=== PATIENT | male | born 1940 | race Caucasian/White ===

== ENCOUNTER 2021-11-28 14:59 | Inpatient (IN) | payer MEDICARE, OTHER ==
[~2021-11-28] VITALS: Ht 162.6 cm; Wt 44.0 kg
--- NOTE | 2021-11-28 15:15 | NUR ---
BIB FAMILY C/O SHARP CHEST PAIN X 2 DAYS, COUGH, CONGESTION, SOB. PS RATED 6/10. AAOX4, BREATHING EVEN AND UNLABORED, POX 95% ON NASAL CANNULA 2L. ON MONITOR. WILL CONTINUE TO MONITOR.
--- NOTE | 2021-11-28 15:25 | NUR ---
IV LINE ESTABLISHED ON LFA #18, BLOOD DRAWN AND SENT TO LAB
[2021-11-28] MEDS ORDERED: methylPREDNISolone SOD SUCC 125 MG/2ML VIAL IV ONE (15:30)
[2021-11-28] MEDS ORDERED: IPRATROPIUM NEB FS 0.5 MG/2.5 ML AMPUL.NEB NEB ONE (15:30)
[2021-11-28] MEDS ORDERED: ALBUTEROL FS 2.5 MG/3 ML VIAL.NEB CONTNEB ONE (15:30)
[2021-11-28] MEDS ORDERED: ALBUTEROL FS 2.5 MG/3 ML VIAL.NEB ONE (15:47)
[2021-11-28] MEDS ORDERED: IPRATROPIUM NEB FS 0.5 MG/2.5 ML AMPUL.NEB ONE (15:47)
--- NOTE | 2021-11-28 16:06 | NUR ---
COVID AND INFLUENZA SWABS OBTAINED AND SENT TO LAB
[2021-11-28 16:28] LABS: BASOPHILS % (AUTO) 0.2 % (0.0-2.0); EOSINOPHILS % (AUTO) 0.1 % (0.0-6.0); HEMATOCRIT 39 % (39-51); HEMOGLOBIN 12.7 g/dL (13.5-17.5); LYMPHOCYTES # (AUTO) 0.6 K/uL (0.8-4.8); MEAN CORPUSCULAR HGB CONC 33 g/dl (31.0-36.0); MEAN CORPUSCULAR VOLUME 96 fL (80-96); MONOCYTES # (AUTO) 1.8 K/uL (0.1-1.30); MONOCYTES % (AUTO) 22.2 % (2.0-12.0); NEUTROPHILS # (AUTO) 5.6 K/uL (1.8-8.9); NEUTROPHILS % (AUTO) 69.5 % (43.0-81.0); PLATELET COUNT (AUTO) 182 K/uL (150-450); RED BLOOD CELL COUNT(AUTO) 4.04 MIL/uL (4.5-6.0)
[2021-11-28 16:38] LABS: CALCIUM, SERUM 8.7 mg/dL (8.5-10.1); CARBON DIOXIDE 27 mmol/L (21-32); CHLORIDE 95 mmol/L (98-107); CREATININE 1.7 mg/dL (0.6-1.3); GLUCOSE 109 mg/dL (74-106); POTASSIUM 4.3 mmol/L (3.5-5.1); SODIUM SERUM 131 mmol/L (136-145); UREA NITROGEN, BLOOD 28 mg/dL (7-18)
[2021-11-28 16:52] LABS: ALBUMIN 3.5 g/dL (3.4-5.0); ALKALINE PHOSPHATASE 87 U/L (46-116); ASPARTATE AMINOTRANSFERASE 42 U/L (15-37); BILIRUBIN,DIRECT 0.3 mg/dL (0.0-0.2); BILIRUBIN,TOTAL 0.8 mg/dL (0.2-1.0)
[2021-11-28] MEDS ORDERED: methylPREDNISolone SOD SUCC 125 MG/2ML VIAL ONE (17:03)
[2021-11-28] MEDS ORDERED: ASCO-340 PO (17:14)
[2021-11-28] MEDS ORDERED: FERR-68 PO (17:14)
[2021-11-28] MEDS ORDERED: FOLI0.4T6 PO (17:14)
[2021-11-28] MEDS ORDERED: SACU1TAB PO (17:14)
[2021-11-28] MEDS ORDERED: TIMO5DRO18 RIGHTEYE (17:14)
[2021-11-28] MEDS ORDERED: LORA-258 PO (17:14)
[2021-11-28] MEDS ORDERED: APIX5TAB PO (17:14)
[2021-11-28] MEDS ORDERED: PANT40TA2 PO (17:14)
[2021-11-28] MEDS ORDERED: CLOP75TA15 PO (17:14)
[2021-11-28] MEDS ORDERED: MAGN400T26 PO (17:14)
[2021-11-28] MEDS ORDERED: FURO20TA4 PO (17:14)
[2021-11-28] MEDS ORDERED: POTA20TA83 PO (17:14)
[2021-11-28] MEDS ORDERED: CARV12.52 PO (17:14)
[2021-11-28] MEDS ORDERED: DOCU-141 PO (17:14)
[2021-11-28] MEDS ORDERED: GABA-532 PO (17:14)
[2021-11-28] MEDS ORDERED: IPRA3AMP23 NEB (17:14)
[2021-11-28] MEDS ORDERED: ROSU20TA32 PO (17:14)
[2021-11-28 17:22] LABS: ALANINE AMINOTRANSFERASE 48 U/L (12-78); TOTAL PROTEIN, SERUM 7.8 g/dL (6.4-8.2)
--- NOTE | 2021-11-28 17:45 | NUR ---
CALLED NURSING SUP REGARDING PT BED
[2021-11-28] MEDS ORDERED: ACETAMINOPHEN 325 MG TABLET PO PRN (18:00)
[2021-11-28] MEDS ORDERED: MAGNESIUM HYDROXIDE 30 ML UDC PO PRN (18:00)
[2021-11-28] MEDS ORDERED: ZOLPIDEM TARTRATE 5 MG TABLET PO PRN (18:00)
[2021-11-28] MEDS ORDERED: ONDANSETRON HCL/PF 4 MG/2 ML VIAL IVP PRN (18:00)
[2021-11-28] MEDS ORDERED: Z GUARD REMEDY 4 OZ OINT TP PRN (18:00)
[2021-11-28] MEDS ORDERED: MAG HYDROX/AL HYDROX/SIMETH 30 ML UDC PO PRN (18:00)
[2021-11-28] MEDS ORDERED: Medication Not On Formulary EA (Ipratropium/Albuterol Sulfate (Duoneb 2.5-0.5 Mg/3 Ml So NEB PRN (18:00)
[2021-11-28] MEDS ORDERED: IPRATROPIUM NEB FS 0.5 MG/2.5 ML AMPUL.NEB NEB PRN (19:00)
[2021-11-28] MEDS ORDERED: ALBUTEROL FS 2.5 MG/3 ML VIAL.NEB NEB PRN (19:00)
--- NOTE | 2021-11-28 20:23 | NUR ---
REPORT GIVEN TO LUDIVINA FraserW RN FOR EMANUEL
--- NOTE | 2021-11-28 20:31 | NUR ---
PT TRANSFERRED TO 3W VIA ACLS PRTOCOL. ALL BELONGINGS WITH PT. RICK (FAMILY) AWARE THAT PT TRANSFFERED & GAVE EDUCATION.
[2021-11-28 20:35] VITALS: BP 145/50
--- NOTE | 2021-11-28 20:35 | NUR ---
RN NOTES; PT RECEIVED FROM ER WITH JESUSITA IN RM 313-1.AOX4 ABLE TO VERBALIZE NEEDS.ON 2L OXYGEN VIA NC INPLACE SATTING 96%.NO SIGN SOB/DISTRESS NOTED.NO COMPLAINED OF PAIN/DISCOMFORT AT THIS TIME.IV ACCESS ON LFA 18G PATENT AND INTACT SL.PT WAS REORIENT THE RM AND VERBALIZE UNDERSTANDING.SAFETY MEASURED INPLACE.CALL LIGHT WITHIN REACH.BED LOCKED AND LOW POSITION.WILL CONTINUE TO MONITOR.
[2021-11-28] MEDS: LEVOFLOXACIN 500 MG /D5W 100ML 500 MG in PREMIX 1 EA IV SCH (21:14)
[2021-11-28] MEDS: LORAZEPAM 0.5 MG TABLET PO SCH (21:14)
[2021-11-28] MEDS: methylPREDNISolone SOD SUCC 40 MG/ML VIAL IV SCH (21:14)
[2021-11-29 00:53] VITALS: BP 94/53
[2021-11-29 04:09] VITALS: BP 106/56
[2021-11-29] MEDS: methylPREDNISolone SOD SUCC 40 MG/ML VIAL IV SCH ×3 (05:08→20:59)
--- NOTE | 2021-11-29 06:12 | NUR ---
RN CLOSING NOTES; PT IN BED AAOX4, ABLE TO VERBALIZE NEEDS.ON 2L OXYGEN VIA NC INPLACE SATTING 97%.NO SIGN SOB/DISTRESS NOTED.BREATHING EVEN UNLABORED.NO COMPLAINED OF PAIN/DISCOMFORT.DUE MEDS GIVEN ORDER.ALL NEEDS ATTENDED,IV ACCESS ON LFA 18G PATENT AND INTACT SL.SAFETY MEASURED INPLACE.CALL LIGHT WITHIN REACH.BED LOCKED AND LOW POSITION.WILL ENDORSED TO NEXT SHIFT.
[2021-11-29 06:13] LABS: CHOLESTEROL 97 mg/dL (<200); HDL CHOLESTEROL 46 mg/dL (40-60); LDL 45 mg/dL (0-99); TRIGLYCERIDES 31 mg/dL (30-150)
[2021-11-29 06:17] LABS: CALCIUM, SERUM 8.6 mg/dL (8.5-10.1); CARBON DIOXIDE 26 mmol/L (21-32); CHLORIDE 100 mmol/L (98-107); CREATININE 1.5 mg/dL (0.6-1.3); GLUCOSE 179 mg/dL (74-106); MAGNESIUM 2.5 mg/dL (1.8-2.4); PHOSPHORUS 2.9 mg/dL (2.5-4.9); POTASSIUM 4.5 mmol/L (3.5-5.1); SODIUM SERUM 135 mmol/L (136-145); UREA NITROGEN, BLOOD 31 mg/dL (7-18)
[2021-11-29 06:28] LABS: BASOPHILS % (AUTO) 0.1 % (0.0-2.0); HEMATOCRIT 35 % (39-51); HEMOGLOBIN 11.7 g/dL (13.5-17.5); LYMPHOCYTES # (AUTO) 0.4 K/uL (0.8-4.8); LYMPHOCYTES % (AUTO) 9.3 % (20.0-44.0); MEAN CORPUSCULAR HGB CONC 34 g/dl (31.0-36.0); MEAN CORPUSCULAR VOLUME 94 fL (80-96); MONOCYTES # (AUTO) 0.4 K/uL (0.1-1.30); MONOCYTES % (AUTO) 7.7 % (2.0-12.0); NEUTROPHILS % (AUTO) 82.9 % (43.0-81.0); PLATELET COUNT (AUTO) 181 K/uL (150-450); RED BLOOD CELL COUNT(AUTO) 3.68 MIL/uL (4.5-6.0); WHITE BLOOD COUNT (AUTO) 4.8 K/uL (4.3-11.0)
--- NOTE | 2021-11-29 07:26 | NUR ---
CIVIL PREPAREDNESS COORDINATOR OPENING NOTE RECEIVED PT ASLEEP IN BED, EASILY AROUSED. A/O X4, ABLE TO MAKE NEEDS KNOWN. ON O2 AT 2L/MIN VIA NASAL CANNULA, TOLERATING WELL. NO SOB NOTED. NOT IN ANY SIGN OF RESPIRATORY DISTRESS. ON CARDIAC TELE MONITOR WITH CURRENT READING OF SINUS RHYTHM WITH BBB, HR 71. NO C/O CARDIAC DISTRESS VOICED AT THIS TIME. IV ACCESS IN LFA G#18 SALINE LOCK, INTACT, AND PATENT. SAFETY MEASURES IN PLACE: BED IN LOWEST AND LOCKED POSITION, SIDE RAILS UPX2, AND CALL LIGHT WITHIN REACH. WILL CONTINUE TO MONITOR PT.
[2021-11-29 08:00] VITALS: BP 109/66
[2021-11-29] MEDS: PANTOPRAZOLE 40 MG TABLET.DR PO SCH (08:26)
[2021-11-29] MEDS: CLOPIDOGREL BISULFATE 75 MG TABLET PO SCH (08:27)
[2021-11-29] MEDS: FOLIC ACID 1 MG TABLET PO SCH (08:27)
[2021-11-29] MEDS: ATORVASTATIN 40 MG TABLET PO SCH (08:27)
[2021-11-29] MEDS: LORAZEPAM 0.5 MG TABLET PO SCH ×2 (08:28→20:59)
[2021-11-29] MEDS: ASCORBIC ACID 500 MG TABLET PO SCH (08:28)
[2021-11-29] MEDS: GABAPENTIN 100 MG CAPSULE PO SCH ×3 (08:28→16:12)
[2021-11-29] MEDS: FERROUS SULFATE (325 MG) 325 MG/TAB TABLET PO SCH (08:28)
[2021-11-29] MEDS: CARVEDILOL 12.5 MG TABLET PO SCH ×2 (08:29→16:13)
[2021-11-29] MEDS: APIXABAN 2.5 MG TABLET PO SCH ×2 (08:31→16:12)
[2021-11-29] MEDS: DOCUSATE SODIUM 100 MG CAPSULE PO SCH (08:37)
[2021-11-29] MEDS: IV D5/ 0.9% NACL 1,000 ML IV PRN (10:11)
[2021-11-29] MEDS: TIMOLOL 0.5% SOLN OPHTH 5 ML BOTTLE RIGHTEYE SCH (10:36)
[2021-11-29] MEDS: GUAIFENESIN LA 600 MG TABLET.SA PO SCH ×2 (10:36→20:59)
--- NOTE | 2021-11-29 12:21 | NUR ---
TX NOT GIVEN ON TIME DUE TO BEEN BUSY AR THE ER. Addendum: 11/29/21 at 1222 by EVELIN QUINTANILLA RT Amended: Links added.
[2021-11-29] MEDS: ALBUTEROL FS 2.5 MG/3 ML VIAL.NEB NEB SCH ×3 (12:36→20:22)
[2021-11-29] MEDS: IPRATROPIUM NEB FS 0.5 MG/2.5 ML AMPUL.NEB NEB SCH ×3 (12:37→20:22)
--- NOTE | 2021-11-29 13:45 | NUR ---
10:00 am TX NOT GIVEN DUE TO BUSY IN ER AND THE 13:30 TX WERE GIVEN EARLIER. PATIENT IS STABLE NO DISTRESS. Addendum: 11/29/21 at 1346 by EVELIN QUINTANILLA RT Amended: Links added.
[2021-11-29 16:05] VITALS: BP 116/58
[2021-11-29] MEDS: ENTRESTO PO SCH (16:12)
--- NOTE | 2021-11-29 19:15 | NUR ---
TANK MAKER WOOD CLOSING NOTE PT ASLEEP IN BED, EASILY AROUSED. A/O X4, ABLE TO MAKE NEEDS KNOWN. ON O2 AT 2L/MIN VIA NASAL CANNULA, TOLERATING WELL. NO SOB NOTED. NOT IN ANY SIGN OF RESPIRATORY DISTRESS. ON CARDIAC TELE MONITOR WITH CURRENT READING OF SINUS RHYTHM, HR 75. NO C/O CARDIAC DISTRESS VOICED AT THIS TIME. IV ACCESS IN LFA G#18 INTACT AND PATENT WITH D5 NS INFUSING AT 75ML/HL. ALL NEEDS ATTENDED. KEPT CLEAN AND COMFORTABLE. SAFETY MEASURES IN PLACE: BED IN LOWEST AND LOCKED POSITION, SIDE RAILS UPX2, AND CALL LIGHT WITHIN REACH. ENDORSED TO PATENTS EXAMINER NURSE FOR EMANUEL.
--- NOTE | 2021-11-29 19:30 | NUR ---
ORIGINATION SPECIALIST OPENING NOTE RECEIVED PT ASLEEP IN BED, EASILY AROUSED. A/O X4, ABLE TO MAKE NEEDS KNOWN. ON O2 AT 2L/MIN VIA NASAL CANNULA, TOLERATING WELL. NO SOB OR S/S OF RESPIRATORY DISTRESS. ON EXTERNAL INTERLOCKER WITH CURRENT READING OF SINUS RHYTHM, HR 75. IV ACCESS LFA G#18 INTACT AND PATENT RUNNING D5 NS @ 75ML/HL. SAFETY PRECAUTIONS IN PLACE. BED IN LOWEST LOCKED POSITION, HOB ELEVATED, SIDE RAILS UP X2, AND CALL LIGHT AND TABLE WITHIN REACH. ALL NEEDS MET AT THIS TIME.
[2021-11-29 20:00] VITALS: BP 93/49
[2021-11-29] MEDS: LEVOFLOXACIN 500 MG /D5W 100ML 500 MG in PREMIX 1 EA IV SCH (20:59)
[2021-11-29 23:48] VITALS: BP 102/59
[2021-11-30] MEDS: IPRATROPIUM NEB FS 0.5 MG/2.5 ML AMPUL.NEB NEB SCH ×5 (01:30→20:17)
[2021-11-30] MEDS: ALBUTEROL FS 2.5 MG/3 ML VIAL.NEB NEB SCH ×5 (01:30→20:17)
[2021-11-30 04:00] VITALS: BP 99/54
[2021-11-30] MEDS: methylPREDNISolone SOD SUCC 40 MG/ML VIAL IV SCH ×3 (05:24→21:33)
--- NOTE | 2021-11-30 06:30 | NUR ---
QUALITATIVE EXECUTIVE RESEARCHER CLOSING NOTE PT AWAKE IN BED. A/O X4, ABLE TO MAKE NEEDS KNOWN. ON O2 AT 2L/MIN VIA NASAL CANNULA, TOLERATING WELL. NO SOB OR S/S OF RESPIRATORY DISTRESS. BREATHING EVEN AND UNLABORED. ON EXTERNAL RELIGIOUS EDUCATION TEACHER WITH CURRENT READING OF SINUS RHYTHM, HR 72. IV ACCESS LFA G#18 INTACT AND PATENT RUNNING D5 NS @ 75ML/HL. ALL DUE MEDS GIVEN ORDERED. SAFETY PRECAUTIONS IN PLACE AT ALL TIMES. BED IN LOWEST LOCKED POSITION, HOB ELEVATED, SIDE RAILS UP X2, AND CALL LIGHT AND TABLE WITHIN REACH. ALL NEEDS MET AT THIS TIME AND WILL ENDORSE TO ONCOMING NURSE FOR EMANUEL.
[2021-11-30 07:07] LABS: CALCIUM, SERUM 8.5 mg/dL (8.5-10.1); CREATININE 1.3 mg/dL (0.6-1.3); POTASSIUM 3.7 mmol/L (3.5-5.1)
--- NOTE | 2021-11-30 07:29 | NUR ---
COLLECTION SPECIALIST OPENING NOTE RECEIVED PT ASLEEP IN BED, EASILY AROUSED. A/O X4, ABLE TO MAKE NEEDS KNOWN. ON O2 AT 2L/MIN VIA NASAL CANNULA, TOLERATING WELL. NO SOB NOTED. NOT IN ANY SIGN OF RESPIRATORY DISTRESS. ON CARDIAC TELE MONITOR WITH CURRENT READING OF SINUS RHYTHM WITH BBB, HR 65. NO C/O CARDIAC DISTRESS VOICED AT THIS TIME. IV ACCESS IN LFA G#18 INTACT AND PATENT WITH D5 NS INFUSING AT 75ML/HL. SAFETY MEASURES IN PLACE: BED IN LOWEST AND LOCKED POSITION, SIDE RAILS UPX2, AND CALL LIGHT WITHIN REACH. WILL CONTINUE TO MONITOR PT.
[2021-11-30] MEDS: PANTOPRAZOLE 40 MG TABLET.DR PO SCH (07:53)
[2021-11-30 08:00] VITALS: BP 117/60
[2021-11-30] MEDS: ENTRESTO PO SCH ×2 (08:48→17:28)
[2021-11-30] MEDS: GUAIFENESIN LA 600 MG TABLET.SA PO SCH ×2 (08:48→21:33)
[2021-11-30] MEDS: FOLIC ACID 1 MG TABLET PO SCH (08:48)
[2021-11-30] MEDS: CLOPIDOGREL BISULFATE 75 MG TABLET PO SCH (08:48)
[2021-11-30] MEDS: TIMOLOL 0.5% SOLN OPHTH 5 ML BOTTLE RIGHTEYE SCH (08:48)
[2021-11-30] MEDS: DOCUSATE SODIUM 100 MG CAPSULE PO SCH (08:48)
[2021-11-30] MEDS: GABAPENTIN 100 MG CAPSULE PO SCH ×3 (08:49→17:28)
[2021-11-30] MEDS: ASCORBIC ACID 500 MG TABLET PO SCH (08:49)
[2021-11-30] MEDS: LORAZEPAM 0.5 MG TABLET PO SCH ×2 (08:49→21:32)
[2021-11-30] MEDS: FERROUS SULFATE (325 MG) 325 MG/TAB TABLET PO SCH (08:49)
[2021-11-30] MEDS: CARVEDILOL 12.5 MG TABLET PO SCH ×2 (08:50→17:00)
[2021-11-30] MEDS: ATORVASTATIN 40 MG TABLET PO SCH (08:51)
[2021-11-30] MEDS: APIXABAN 2.5 MG TABLET PO SCH ×2 (08:52→17:26)
[2021-11-30] MEDS: IV D5/ 0.9% NACL 1,000 ML IV PRN (10:24)
[2021-11-30 12:00] VITALS: BP 114/51
--- NOTE | 2021-11-30 19:51 | NUR ---
RN OPENING NOTES; RECEICED PT IN BED AAOX4, ABLE TO VERBALIZE NEEDS.ON 2L OXYGEN VIA NC INPLACE SATTING 98%.NO SIGN SOB/DISTRESS NOTED.BREATHING EVEN UNLABORED.NO COMPLAINED OF PAIN/DISCOMFORT.IV ACCESS ON LFA 18G PATENT AND INTACT SL.SAFETY MEASURED INPLACE.CALL LIGHT WITHIN REACH.BED LOCKED AND LOW POSITION.WILL CONTINUE TO MONITOR.
[2021-11-30 20:00] VITALS: BP 110/61
[2021-11-30] MEDS: LEVOFLOXACIN 250 MG /D5W 50 ML 250 MG in PREMIX 1 EA IV SCH (21:32)
[2021-11-30 23:52] VITALS: BP 112/64
[2021-12-01] MEDS: IPRATROPIUM NEB FS 0.5 MG/2.5 ML AMPUL.NEB NEB SCH ×4 (01:30→19:50)
[2021-12-01] MEDS: ALBUTEROL FS 2.5 MG/3 ML VIAL.NEB NEB SCH ×4 (01:30→19:50)
[2021-12-01] MEDS: IV D5/ 0.9% NACL 1,000 ML IV PRN ×2 (02:56→22:15)
[2021-12-01] MEDS: methylPREDNISolone SOD SUCC 40 MG/ML VIAL IV SCH ×2 (04:37→21:30)
[2021-12-01 05:38] VITALS: BP 115/84
--- NOTE | 2021-12-01 06:22 | NUR ---
CODING MANAGER CLOSING NOTE; PT AWAKE IN BED. A/O X4, ABLE TO MAKE NEEDS KNOWN. ON O2 AT 2L/MIN VIA NASAL CANNULA, TOLERATING WELL. NO SOB/DISTRESS NOTED. BREATHING EVEN AND UNLABORED. ON EXTERNAL RECENTERER WITH CURRENT READING OF SINUS RHYTHM, HR 70. IV ACCESS LFA G#18 INTACT AND PATENT RUNNING D5 NS @ 75ML/HL.DUE MEDS GIVEN ORDERED.ALL NEEDS ATTENDED SAFETY PRECAUTIONS IN PLACE AT ALL TIMES. BED IN LOWEST LOCKED POSITION, HOB ELEVATED, SIDE RAILS UP X2, AND CALL LIGHT AND TABLE WITHIN REACH. WILL ENDORSE TO NEXT SHIFT.
[2021-12-01 06:25] LABS: BASOPHILS % (AUTO) 0.1 % (0.0-2.0); HEMATOCRIT 34 % (39-51); HEMOGLOBIN 11.3 g/dL (13.5-17.5); LYMPHOCYTES # (AUTO) 0.7 K/uL (0.8-4.8); LYMPHOCYTES % (AUTO) 5.9 % (20.0-44.0); MEAN CORPUSCULAR HGB CONC 33 g/dl (31.0-36.0); MEAN CORPUSCULAR VOLUME 94 fL (80-96); MONOCYTES # (AUTO) 0.6 K/uL (0.1-1.30); MONOCYTES % (AUTO) 5.4 % (2.0-12.0); NEUTROPHILS # (AUTO) 10.1 K/uL (1.8-8.9); NEUTROPHILS % (AUTO) 88.6 % (43.0-81.0); PLATELET COUNT (AUTO) 229 K/uL (150-450); RED BLOOD CELL COUNT(AUTO) 3.62 MIL/uL (4.5-6.0); WHITE BLOOD COUNT (AUTO) 11.4 K/uL (4.3-11.0)
[2021-12-01 06:42] LABS: CALCIUM, SERUM 8.6 mg/dL (8.5-10.1); CARBON DIOXIDE 23 mmol/L (21-32); CHLORIDE 104 mmol/L (98-107); CREATININE 1.2 mg/dL (0.6-1.3); GLUCOSE 170 mg/dL (74-106); POTASSIUM 4.2 mmol/L (3.5-5.1); SODIUM SERUM 138 mmol/L (136-145); UREA NITROGEN, BLOOD 34 mg/dL (7-18)
--- NOTE | 2021-12-01 07:20 | NUR ---
ms rn received on bed, awake,alert,oriented x4,not in any form of distress, respirations even and unlabored,no sob noted, lungs are clear,abdomen soft,positive bowel sounds,denies pain at this time,all needs attended.
[2021-12-01] MEDS: PANTOPRAZOLE 40 MG TABLET.DR PO SCH (08:25)
--- NOTE | 2021-12-01 09:55 | NUR ---
ms galloway breakfast served,due meds given, tolerated well.
[2021-12-01] MEDS: GABAPENTIN 100 MG CAPSULE PO SCH ×3 (09:57→17:41)
[2021-12-01] MEDS: ASCORBIC ACID 500 MG TABLET PO SCH (09:58)
[2021-12-01] MEDS: FERROUS SULFATE (325 MG) 325 MG/TAB TABLET PO SCH (09:58)
[2021-12-01] MEDS: ATORVASTATIN 40 MG TABLET PO SCH (09:58)
[2021-12-01] MEDS: GUAIFENESIN LA 600 MG TABLET.SA PO SCH ×2 (09:58→21:30)
[2021-12-01] MEDS: LORAZEPAM 0.5 MG TABLET PO SCH ×2 (09:58→21:30)
[2021-12-01] MEDS: FOLIC ACID 1 MG TABLET PO SCH (09:58)
[2021-12-01] MEDS: CLOPIDOGREL BISULFATE 75 MG TABLET PO SCH (09:58)
[2021-12-01] MEDS: DOCUSATE SODIUM 100 MG CAPSULE PO SCH (09:58)
[2021-12-01] MEDS: CARVEDILOL 12.5 MG TABLET PO SCH ×2 (10:05→17:42)
[2021-12-01] MEDS: APIXABAN 2.5 MG TABLET PO SCH ×2 (10:06→17:43)
[2021-12-01] MEDS: ENTRESTO PO SCH ×2 (11:07→17:41)
[2021-12-01] MEDS: TIMOLOL 0.5% SOLN OPHTH 5 ML BOTTLE RIGHTEYE SCH (11:10)
--- NOTE | 2021-12-01 11:20 | NUR ---
ms nate was seen by shin seaman/ orders made and carried out.
--- NOTE | 2021-12-01 15:50 | NUR ---
ms rn on bed, no distress noted.
--- NOTE | 2021-12-01 19:48 | NUR ---
MS RN OPENING NOTES: RECEIVED PATIENT AWAKE IN BED, BED IN LOW POSITION CALL LIGHTS WITHIN REACH, NO COMPLAIN OF PAIN AND DISCOMFORT AT THIS TIME ON O2 INHALATION AT 3LPM SATURATING WELL, PATIENT WITH IV LINE AT LFA#20 WITH ONGOING D5NS@75ML/HR INFUSIG WELL, PATIENT KEPT PATIENT IS A./O/OX4 ABLE TO MAKE NEEDS KNOWN REMIND THE PATIENT TO USE THE CALL LIGHTS WHEN NEEDED ASSISTANCE, PATIENT KEPT CLEAN AND DRY ALL NEEDS MET ENDORSE TO INCOMING SHIFT. ,
[2021-12-01 20:00] VITALS: BP_SYST 115; BP_SYST 127; BP_DIAS 63; BP_DIAS 91
[2021-12-01] MEDS: LEVOFLOXACIN 250 MG /D5W 50 ML 250 MG in PREMIX 1 EA IV SCH (21:31)
[2021-12-02] MEDS: IPRATROPIUM NEB FS 0.5 MG/2.5 ML AMPUL.NEB NEB SCH ×4 (01:30→20:16)
[2021-12-02] MEDS: ALBUTEROL FS 2.5 MG/3 ML VIAL.NEB NEB SCH ×4 (01:30→20:16)
--- NOTE | 2021-12-02 06:28 | NUR ---
MS RN CLOSING NOTES: PATIENT SLEEP IN BED COMFORTABLY, AROUSABLE TO VERBAL STIMULI, BED IN LOW POSITION, CALL LIGHTS WITHIN REACH, NO COMPLAIN OF PAIN AND DISCOMFORT AT THIS TIME, ON O2 INHALATION AT 2LPM VIA NASAL CANNULA, NO SOB WAS OBSERVED, PATIENT KEPT CLEAN AND DRY ALL NEEDS MET ENDORSE TO INCOMING SHIFT
--- NOTE | 2021-12-02 07:15 | NUR ---
RN NOTES RECEIVED PATIENT IN BED ASLEEP, EASILY AROUSED. PATIENT IS A/O X4, VERBALLY RESPONSIVE. NO SIGNS OF ACUTE DISTRESS NOTED. ON O2 @ 2LPM VIA N/C, NO SOB NOTED, BREATHING EVEN AND UNLABORED. NOTED WITH IV ACCESS ON LEFT FORE ARM #18G, INTACT AND PATENT, WITH D5NS @ 75 ML/HR RUNNING. DENIES ANY PAIN AT THIS TIE. SAFETY MEASURE IN PLACE. BED IN LOWEST AND LOCKED POSITION, SIDE RAILS UP X2, CALL LIGHT PLACED WITHIN EASY REACH. WILL CONTINUE TO MONITOR PATIENT.
[2021-12-02 08:00] VITALS: BP 128/71
[2021-12-02] MEDS: PANTOPRAZOLE 40 MG TABLET.DR PO SCH (08:22)
[2021-12-02] MEDS: DOCUSATE SODIUM 100 MG CAPSULE PO SCH (08:22)
[2021-12-02] MEDS: CLOPIDOGREL BISULFATE 75 MG TABLET PO SCH (08:22)
[2021-12-02] MEDS: FERROUS SULFATE (325 MG) 325 MG/TAB TABLET PO SCH (08:22)
[2021-12-02] MEDS: GUAIFENESIN LA 600 MG TABLET.SA PO SCH ×2 (08:22→21:12)
[2021-12-02] MEDS: CARVEDILOL 12.5 MG TABLET PO SCH ×2 (08:22→16:20)
[2021-12-02] MEDS: GABAPENTIN 100 MG CAPSULE PO SCH ×3 (08:22→16:20)
[2021-12-02] MEDS: FOLIC ACID 1 MG TABLET PO SCH (08:22)
[2021-12-02] MEDS: ATORVASTATIN 40 MG TABLET PO SCH (08:22)
[2021-12-02] MEDS: methylPREDNISolone SOD SUCC 40 MG/ML VIAL IV SCH ×2 (08:22→16:27)
[2021-12-02] MEDS: LORAZEPAM 0.5 MG TABLET PO SCH ×2 (08:23→21:12)
[2021-12-02] MEDS: ASCORBIC ACID 500 MG TABLET PO SCH (08:23)
[2021-12-02] MEDS: APIXABAN 2.5 MG TABLET PO SCH ×2 (08:26→16:21)
[2021-12-02] MEDS: TIMOLOL 0.5% SOLN OPHTH 5 ML BOTTLE RIGHTEYE SCH (08:28)
[2021-12-02] MEDS: ENTRESTO PO SCH ×2 (08:28→16:19)
--- NOTE | 2021-12-02 09:32 | NUR ---
RT Patient received on room air (was not wearing nasal cannula) HR 78 SPO2 95%. No SOB or respiratory distress noted.
[2021-12-02 16:00] VITALS: BP 118/66
--- NOTE | 2021-12-02 16:27 | NUR ---
RN NOTE SOLUMEDROL @1700 NOT ADMINISTERED, CHANGED FREQUENCY TO DAILY. 40 MG DOSE ALREADY GIVEN IN THE MORNING.
--- NOTE | 2021-12-02 18:50 | NUR ---
RN CLOSING NOTES PATIENT IN BED AWAKE. A/O X4, VERBALLY RESPONSIVE. NO SIGNS OF ACUTE DISTRESS NOTED. CURRENTLY ON ROOM AIR TOLERATING WELL, NO SOB NOTED, BREATHING EVEN AND UNLABORED. NOTED WITH IV ACCESS ON LEFT FORE ARM #18G, INTACT AND PATENT, SALINE LOCKED. DENIES ANY PAIN AT THIS TIE. SAFETY MEASURE IN PLACE. BED IN LOWEST AND LOCKED POSITION, SIDE RAILS UP X2, CALL LIGHT PLACED WITHIN EASY REACH. WILL ENDORSE TO NEXT SHIFT FOR CONTINUITY OF CARE.
--- NOTE | 2021-12-02 19:25 | NUR ---
RN OPENING NOTE PATIENT IN BED, AWAKE. PATIENT IS CURRENTLY ON RA, TOLERATING WELL. PATIENT IS A/O X 3 AT THIS TIME, ABLE TO MAKE NEEDS KNOWN. BREATHING EVEN AND UNLABORED. PATIENT HAS A LFA 18 G, SALINE LOCKED AT THIS TIME. IV ACCESS PATENT AND INTACT. PATIENT DOES NOT REPORT ANY PAIN AT THIS TIME. SAFETY MEASURES IN PLACE: BED LOCKED AND IN LOWEST POSITION, CALL LIGHT WITHIN REACH, SIDE RAILS UP. WILL MONITOR PATIENT CLOSELY.
[2021-12-02 20:00] VITALS: BP 119/67
--- NOTE | 2021-12-02 20:19 | NUR ---
RT PT RECVD AWAKE AND VERBAL ON ROOM AIR, NO SOB OR RESPIRATORY DISTRESS NOTED AT THIS TIME. NEB TX GIVEN AND ABDIEL WELL WITH NO ADVERSE REACTIONS NOTED.
[2021-12-02] MEDS: LEVOFLOXACIN 250 MG /D5W 50 ML 250 MG in PREMIX 1 EA IV SCH (21:12)
--- NOTE | 2021-12-03 01:26 | NUR ---
PT REFUSED NEB TX AT THIS TIME, RN IS AWARE.
[2021-12-03] MEDS: IPRATROPIUM NEB FS 0.5 MG/2.5 ML AMPUL.NEB NEB SCH ×3 (01:30→13:33)
[2021-12-03] MEDS: ALBUTEROL FS 2.5 MG/3 ML VIAL.NEB NEB SCH ×3 (01:30→13:33)
[2021-12-03 06:28] LABS: BASOPHILS % (AUTO) 0.1 % (0.0-2.0); EOSINOPHILS % (AUTO) 0.9 % (0.0-6.0); HEMATOCRIT 34 % (39-51); HEMOGLOBIN 11.4 g/dL (13.5-17.5); LYMPHOCYTES # (AUTO) 1.3 K/uL (0.8-4.8); LYMPHOCYTES % (AUTO) 11.5 % (20.0-44.0); MEAN CORPUSCULAR HGB CONC 34 g/dl (31.0-36.0); MEAN CORPUSCULAR VOLUME 93 fL (80-96); MONOCYTES # (AUTO) 0.9 K/uL (0.1-1.30); MONOCYTES % (AUTO) 8.4 % (2.0-12.0); NEUTROPHILS # (AUTO) 8.7 K/uL (1.8-8.9); NEUTROPHILS % (AUTO) 79.1 % (43.0-81.0); PLATELET COUNT (AUTO) 250 K/uL (150-450); RED BLOOD CELL COUNT(AUTO) 3.62 MIL/uL (4.5-6.0)
--- NOTE | 2021-12-03 06:50 | NUR ---
RN CLOSING NOTE PATIENT IN BED, EYES CLOSED. PATIENT IS CURRENTLY ON RA, TOLERATING WELL. BREATHING EVEN AND UNLABORED. PATIENT IS A/O X 3 AT THIS TIME, ABLE TO MAKE NEEDS KNOWN. PATIENT HAS A LFA 18 G, SALINE LOCKED AT THIS TIME. IV ACCESS PATENT AND INTACT. PATIENT DOES NOT REPORT ANY PAIN AT THIS TIME. SAFETY MEASURES IN PLACE: BED LOCKED AND IN LOWEST POSITION, CALL LIGHT WITHIN REACH, SIDE RAILS UP. ALL NEEDS MET AND ATTENDED. ALL ORDERS CARRIED OUT. WILL ENDORSE TO DAY SHIFT NURSE FOR EMANUEL.
[2021-12-03 07:04] LABS: CARBON DIOXIDE 27 mmol/L (21-32); CHLORIDE 104 mmol/L (98-107); CREATININE 1.2 mg/dL (0.6-1.3); GLUCOSE 89 mg/dL (74-106); POTASSIUM 4.2 mmol/L (3.5-5.1); SODIUM SERUM 140 mmol/L (136-145); UREA NITROGEN, BLOOD 31 mg/dL (7-18)
--- NOTE | 2021-12-03 07:08 | NUR ---
MS RN OPENING NOTES RECEIVED PATIENT AWAKE IN BED, A/Ox4, ABLE TO MAKE NEEDS KNOWN. IV ACCESS LFA #18 SL A INTACT AND PATENT. PATIENT ON ROOM AIR, NO S/S OF RESPIRATORY DISTRESS. PATIENT IS CONTINENT, ABLE TO AMBULATE TO THE BATHROOM. SKIN ISSUES: L FA BRUISE AND R FA ELBOW BRUISE. SAFETY MEASURES IN PLACE: BED LOCKED AND IN LOWEST POSITION, CALL LIGHT WITHIN REACH, BED ALARM ON, SIDE RAILS UP x2, HOB ELEVATED. WILL CONTINUE TO MONITOR.
[2021-12-03] MEDS: PANTOPRAZOLE 40 MG TABLET.DR PO SCH (08:19)
[2021-12-03] MEDS: FOLIC ACID 1 MG TABLET PO SCH (08:19)
[2021-12-03] MEDS: ASCORBIC ACID 500 MG TABLET PO SCH (08:19)
[2021-12-03] MEDS: FERROUS SULFATE (325 MG) 325 MG/TAB TABLET PO SCH (08:19)
[2021-12-03] MEDS: GABAPENTIN 100 MG CAPSULE PO SCH ×2 (08:20→12:22)
[2021-12-03] MEDS: ENTRESTO PO SCH (08:20)
[2021-12-03] MEDS: GUAIFENESIN LA 600 MG TABLET.SA PO SCH (08:20)
[2021-12-03] MEDS: ATORVASTATIN 40 MG TABLET PO SCH (08:20)
[2021-12-03] MEDS: LORAZEPAM 0.5 MG TABLET PO SCH (08:20)
[2021-12-03] MEDS: TIMOLOL 0.5% SOLN OPHTH 5 ML BOTTLE RIGHTEYE SCH (08:20)
[2021-12-03] MEDS: CLOPIDOGREL BISULFATE 75 MG TABLET PO SCH (08:20)
[2021-12-03] MEDS: APIXABAN 2.5 MG TABLET PO SCH (08:21)
[2021-12-03] MEDS: DOCUSATE SODIUM 100 MG CAPSULE PO SCH (08:21)
[2021-12-03] MEDS: methylPREDNISolone SOD SUCC 40 MG/ML VIAL IV SCH (08:24)
[2021-12-03 08:28] VITALS: BP 126/76
[2021-12-03 08:58] VITALS: BP 126/76
[2021-12-03] MEDS ORDERED: predniSONE 20 MG TABLET PO SCH (09:00)
[2021-12-03] MEDS ORDERED: CARVEDILOL 12.5 MG TABLET PO SCH (09:00)
[2021-12-03] MEDS ORDERED: LEVO500T90 PO (10:59)
[2021-12-03] MEDS ORDERED: GUAI600T53 PO (10:59)
[2021-12-03] MEDS ORDERED: ALBUT2 NEB (10:59)
[2021-12-03] MEDS ORDERED: IPRA0.2S9 NEB (10:59)
[2021-12-03] MEDS ORDERED: METH4TAB17 PO (10:59)
[2021-12-03] MEDS ORDERED: BUDE10.2 INH (10:59)
[2021-12-03] MEDS ORDERED: CARV12.52 PO (10:59)
--- NOTE | 2021-12-03 14:32 | NUR ---
ELECTRICAL PROSPECTOR NOTES PATIENT DISCHARGED HOME WITH HOME HEALTH. A/Ox4 ABLE TO MAKE NEEDS KNOWN. IN STABLE CONDITION, NO S/S OF RESPIRATORY DISTRESS, PAIN OR DISCOMFORT. DISCHARGE INSTRUCTIONS AND HEALTH TEACHINGS EXPLAINED AND GIVEN TO PATIENT. PATIENT VERBALIZED UNDERSTANDING. PATIENT SIGNED INSTRUCTIONS AND BELONGINGS LIST, COPIES MADE AND FILED INTO CHART. PATIENT REFUSED TO HAVE PHOTOS TAKE PRIOR TO DISCHARGE. IV ACCESS REMOVED AND PRESSURE DRESSING APPLIED. NO S/S OF BLEEDING. PATIENT LEFT UNIT VIA WHEELCHAIR ACCOMPANIED BY PITO BACON AND RICK @[phone]. PATIENT LEFT VIA PRIVATE CAR. CHARGE NURSE AND MD AWARE OF DISCHARGE.
[2021-12-03] MEDS ORDERED: LEVOFLOXACIN (250MG) 250 MG TABLET PO SCH (20:00)
== END 2021-12-03 14:25 | disposition home health service (06) | DRG 193 ==
LOC: ER 15:03 → TRANSITION 19:47 → TELE 19:56 → MED 20:32 → TELE 11-29 00:46 → MED 12-01 18:58
PROVIDERS: ADMIT Nurse Practitioner Acute Care; ATTEND Nurse Practitioner Acute Care
DX: J15.9 Unspecified bacterial pneumonia (principal); I50.33 Acute on chronic diastolic (congestive) heart failure; N17.0 Acute kidney failure with tubular necrosis; J44.1 Chronic obstructive pulmonary disease with (acute) exacerbation; E87.1 Hypo-osmolality and hyponatremia; J44.0 Chronic obstructive pulmonary disease with (acute) lower respiratory infection; I48.91 Unspecified atrial fibrillation; Z95.2 Presence of prosthetic heart valve; Z20.822 Contact with and (suspected) exposure to COVID-19; Z95.0 Presence of cardiac pacemaker; Z88.0 Allergy status to penicillin; Z88.2 Allergy status to sulfonamides; Z79.51 Long term (current) use of inhaled steroids; Z79.01 Long term (current) use of anticoagulants; Z79.02 Long term (current) use of antithrombotics/antiplatelets; Z79.899 Other long term (current) drug therapy; E78.5 Hyperlipidemia, unspecified; I11.0 Hypertensive heart disease with heart failure; E11.9 Type 2 diabetes mellitus without complications; Z86.79 Personal history of other diseases of the circulatory system; E86.1 Hypovolemia; K40.90 Unilateral inguinal hernia, without obstruction or gangrene, not specified as recurrent; Z87.891 Personal history of nicotine dependence; H40.9 Unspecified glaucoma; G62.9 Polyneuropathy, unspecified
CPT/HCPCS: 36415; 71045-TC; 71250-TC; 80048-TC; 80061-TC; 80076-TC; 83735-TC; 83880; 84100-TC; 84484-TC; 85025-TC; 93307-TC; 94799-TC; 97116-TC; 97530-TC; A4216; C9803; G0378; J1956; J2920; J2930; J7030; J7040; J7042

== ENCOUNTER 2022-07-30 14:31 | Emergency (ER) | payer MEDICARE, OTHER ==
[~2022-07-30] VITALS: Ht 162.6 cm; Wt 45.4 kg
[~2022-07-30 14:31] MED LIST: ALBUT2 NEB; APIX5TAB PO; ASCO-340 PO; BUDE10.2 INH; CARV12.52 PO; CLOP75TA15 PO; DOCU-141 PO; FERR-68 PO; FOLI0.4T6 PO; FURO20TA4 PO; GABA-532 PO; GUAI600T53 PO; IPRA0.2S9 NEB; IPRA3AMP23 NEB; LEVO500T90 PO; LORA-258 PO; MAGN400T26 PO; METH4TAB17 PO; PANT40TA2 PO; POTA20TA83 PO; ROSU20TA32 PO; SACU1TAB PO; TIMO5DRO18 RIGHTEYE
--- NOTE | 2022-07-30 14:54 | NUR ---
BIB RA C/O DIZZINESS FOLLOWED BY A SYNCOPAL EPISODE WHILE AT A [facility] STORE AT 1400. FAMILY MEMBER STATED HE HAD A SUDDEN ONSET AND HAD A SYNCOPAL EPISODE. FAMILY MEMBER WAS ABLE TO CATCH PT AND STATED HE DID NOT HIT HIS HEAD. PT ATTACHED TO MONITOR, VITALS ARE WITHIN NORMAL LIMITS. AWAITING MD ORDERS.
--- NOTE | 2022-07-30 15:24 | NUR ---
IV DADA Villarreal AC 18G. LABS DRAWN AND COLLECTED AT BEDSIDE
--- NOTE | 2022-07-30 15:27 | NUR ---
PT TAKEN TO CT VIA JESUSITA
[2022-07-30] MEDS ORDERED: IV NS 0.9% 1,000 ML BAG IV ONE (15:30)
[2022-07-30 15:34] LABS: BASOPHILS # (AUTO) 0.1 K/uL (0.0-0.2); BASOPHILS % (AUTO) 0.6 % (0.0-2.0); EOSINOPHILS % (AUTO) 1.5 % (0.0-6.0); HEMATOCRIT 37 % (39-51); HEMOGLOBIN 12.2 g/dL (13.5-17.5); LYMPHOCYTES # (AUTO) 1.1 K/uL (0.8-4.8); LYMPHOCYTES % (AUTO) 11.6 % (20.0-44.0); MEAN CORPUSCULAR HGB CONC 33 g/dl (31.0-36.0); MEAN CORPUSCULAR VOLUME 94 fL (80-96); MONOCYTES # (AUTO) 0.9 K/uL (0.1-1.30); MONOCYTES % (AUTO) 9.6 % (2.0-12.0); NEUTROPHILS # (AUTO) 7.1 K/uL (1.8-8.9); NEUTROPHILS % (AUTO) 76.7 % (43.0-81.0); PLATELET COUNT (AUTO) 171 K/uL (150-450); RED BLOOD CELL COUNT(AUTO) 3.96 MIL/uL (4.5-6.0); WHITE BLOOD COUNT (AUTO) 9.3 K/uL (4.3-11.0)
--- NOTE | 2022-07-30 15:37 | NUR ---
PT RETURNED FROM CT VIA [facility]
[2022-07-30 15:52] LABS: CALCIUM, SERUM 8.7 mg/dL (8.5-10.1); CARBON DIOXIDE 26 mmol/L (21-32); CHLORIDE 105 mmol/L (98-107); CREATININE 1.4 mg/dL (0.6-1.3); GLUCOSE 104 mg/dL (74-106); POTASSIUM 4.4 mmol/L (3.5-5.1); SODIUM SERUM 139 mmol/L (136-145); UREA NITROGEN, BLOOD 27 mg/dL (7-18)
[2022-07-30 16:00] LABS: ALANINE AMINOTRANSFERASE 19 U/L (12-78); ALBUMIN 3.3 g/dL (3.4-5.0); ALKALINE PHOSPHATASE 72 U/L (46-116); ASPARTATE AMINOTRANSFERASE 20 U/L (15-37); BILIRUBIN,DIRECT 0.1 mg/dL (0.0-0.2); BILIRUBIN,TOTAL 0.3 mg/dL (0.2-1.0); TOTAL PROTEIN, SERUM 6.2 g/dL (6.4-8.2)
[2022-07-30 17:20] VITALS: BP 123/78
== END 2022-07-30 17:20 | disposition home or self-care (01) ==
LOC: ER 14:36
DX: R55 Syncope and collapse (principal); E86.0 Dehydration; M47.892 Other spondylosis, cervical region; Z88.0 Allergy status to penicillin; Z88.2 Allergy status to sulfonamides; Z79.899 Other long term (current) drug therapy
CPT/HCPCS: 99285; 72125; 96360; 71045; 93005 ×2; 70450; 85025; 80048; 80076; 36415; 84484; 85730; 82962; J7030

== ENCOUNTER 2022-08-02 13:36 | Inpatient (IN) | payer MEDICARE, OTHER ==
[~2022-08-02] VITALS: Ht 162.6 cm; Wt 45.9 kg
--- NOTE | 2022-08-02 14:40 | NUR ---
Patient AOx4 able to express his concerns. and caregiver at bedside. Patient with no signs of distress or discomfort other than feeling full bladder and not able to urinate as stated by patient. Discussed plan pof care, patient verbalized agreement. All safety precautions taken, will continue to monitor.
[2022-08-02 14:46] LABS: BASOPHILS # (AUTO) 0.1 K/uL (0.0-0.2); BASOPHILS % (AUTO) 1.2 % (0.0-2.0); EOSINOPHILS % (AUTO) 1.7 % (0.0-6.0); HEMATOCRIT 40 % (39-51); HEMOGLOBIN 13.3 g/dL (13.5-17.5); LYMPHOCYTES # (AUTO) 1.2 K/uL (0.8-4.8); LYMPHOCYTES % (AUTO) 14.2 % (20.0-44.0); MEAN CORPUSCULAR HGB CONC 33 g/dl (31.0-36.0); MEAN CORPUSCULAR VOLUME 93 fL (80-96); MONOCYTES # (AUTO) 0.9 K/uL (0.1-1.30); MONOCYTES % (AUTO) 10.4 % (2.0-12.0); NEUTROPHILS # (AUTO) 6.3 K/uL (1.8-8.9); NEUTROPHILS % (AUTO) 72.5 % (43.0-81.0); PLATELET COUNT (AUTO) 206 K/uL (150-450); RED BLOOD CELL COUNT(AUTO) 4.31 MIL/uL (4.5-6.0); WHITE BLOOD COUNT (AUTO) 8.7 K/uL (4.3-11.0)
--- NOTE | 2022-08-02 14:50 | NUR ---
Small Catheter inserted as ordered, total urine output on insertion 1100ml. Patient tolerated well,states he feels alot better.
[2022-08-02 15:06] LABS: ALBUMIN 3.8 g/dL (3.4-5.0); BILIRUBIN,DIRECT 0.1 mg/dL (0.0-0.2); BILIRUBIN,TOTAL 0.3 mg/dL (0.2-1.0); CREATININE 1.2 mg/dL (0.6-1.3); POTASSIUM 4.8 mmol/L (3.5-5.1); TOTAL PROTEIN, SERUM 7.5 g/dL (6.4-8.2)
[2022-08-02 15:30] LABS: THYROID STIMULATING HORMONE 4.034 uIU/mL (0.358-3.74)
[2022-08-02 15:47] LABS: BILIRUBIN,URINE NEGATIVE (NEGATIVE); COLOR,URINE YELLOW (YELLOW); PROTEIN,URINE NEGATIVE (NEGATIVE); UGLUCOSE NEGATIVE (NEGATIVE); UROBILINOGEN,URINE 0.2 EU/dL (0.2)
[2022-08-02 15:48] LABS: LEUKOCYTE ESTERASE ,URINE NEGATIVE (NEGATIVE); NITRITE, URINE NEGATIVE (NEGATIVE)
[2022-08-02 16:57] LABS: MAGNESIUM 2.6 mg/dL (1.8-2.4)
--- NOTE | 2022-08-02 17:50 | NUR ---
COVID swab collected and sent to lab
--- NOTE | 2022-08-02 17:50 | NUR ---
MRSA swab collected and sent to lab
[2022-08-02] MEDS ORDERED: AMLO10TA4 PO (18:06)
--- NOTE | 2022-08-02 19:03 | NUR ---
307-1. ADMITTING MADE AWARE.
--- NOTE | 2022-08-02 19:27 | NUR ---
Handoff report given to Floridalma BLACK for continuity of care.
[2022-08-02] MEDS ORDERED: ONDANSETRON HCL/PF 4 MG/2 ML VIAL IVP PRN (20:00)
[2022-08-02] MEDS ORDERED: ACETAMINOPHEN 325 MG TABLET PO PRN (20:00)
[2022-08-02] MEDS ORDERED: MAGNESIUM HYDROXIDE 30 ML UDC PO PRN (20:00)
[2022-08-02] MEDS ORDERED: MORPHINE SULFATE INJ 2 MG/ML DISP.SYRIN IV PRN (20:00)
[2022-08-02] MEDS ORDERED: MAG HYDROX/AL HYDROX/SIMETH 30 ML UDC PO PRN (20:00)
--- NOTE | 2022-08-02 20:11 | NUR ---
REPORT GIVEN TO VIDAL
[2022-08-02] MEDS ORDERED: ZOLPIDEM TARTRATE 5 MG TABLET PO PRN (20:30)
--- NOTE | 2022-08-02 20:30 | NUR ---
PT TRANSFERRING TO [facility]- VIA ACLS PROTOCOL. VSS. ALL BELONGINGS WITH.
--- NOTE | 2022-08-02 20:39 | NUR ---
MS POSTER NOTE RECEIVED REPORT FROM ER NURSE Susan. PT ARRIVED IN UNIT VIA GURNEY, WITH ER NURSE. PT IS BEING ADMITTED IN ROOM 306-1 MS UNDER COLLECTION DEVELOPMENT LIBRARIAN MANPREET WITH DX OF ACUTE WEAKNESS, AND URINE RETENTION. PT A/O X4, ABLE TO MAKE NEEDS KNOWN. ON ROOM AIR, AND TOLERATING RA WELL. NO S/S OF RESPIRATORY DISTRESS. IV ACCESS TO LEFT FA 20G SL, INTACT AND PATENT. BELONGINGS CHECKED, AND BELONGING LIST SIGNED, AND PLACED IN PT'S CHART. PT DECLINES SKIN ASSESSMENT, AND PICTURES OF SKIN TO BE TAKEN AT THIS MOMENT. BUT PT HAS BRUISES TO BILATERAL UPPER EXTREMITIES, AND EDEMA TO BILATERAL LOWER EXTREMITIES. SAFETY PRECAUTIONS IN PLACE. BED IN LOWEST LOCKED POSITION, HOB ELEVATED, SIDE RAILS UP X2, BED ALARM ON, AND CALL LIGHT AND TABLE WITHIN REACH. WILL CONTINUE TO MONITOR. Addendum: 08/03/22 at 0248 by VIDAL MONTEZ RN PT ADMITTED IN 307-1 INSTEAD OF 306-1.
[2022-08-02 21:42] VITALS: BP 108/72
[2022-08-02] MEDS: TAMSULOSIN 0.4 MG CAP.SR.24H PO SCH (22:15)
--- NOTE | 2022-08-02 22:15 | NUR ---
MS RN NOTE PT REPORT INSOMNIA. JOAQUÍN ADMINISTERED TO PT. WILL CONTINUE TO MONITOR.
[2022-08-02] MEDS: CYCLOBENZAPRINE 10 MG TABLET PO PRN (22:24)
--- NOTE | 2022-08-02 22:25 | NUR ---
MS RN NOTE PT C/O MUSCLE SPAMS TO NECK. FLEXERIL ADMINISTERED TO PT.
[2022-08-03 06:32] LABS: BASOPHILS % (AUTO) 0.4 % (0.0-2.0); EOSINOPHILS % (AUTO) 2.3 % (0.0-6.0); HEMATOCRIT 35 % (39-51); HEMOGLOBIN 11.8 g/dL (13.5-17.5); LYMPHOCYTES # (AUTO) 1.3 K/uL (0.8-4.8); LYMPHOCYTES % (AUTO) 13.9 % (20.0-44.0); MEAN CORPUSCULAR HGB CONC 34 g/dl (31.0-36.0); MEAN CORPUSCULAR VOLUME 93 fL (80-96); MONOCYTES % (AUTO) 11.3 % (2.0-12.0); NEUTROPHILS # (AUTO) 6.6 K/uL (1.8-8.9); NEUTROPHILS % (AUTO) 72.1 % (43.0-81.0); PLATELET COUNT (AUTO) 169 K/uL (150-450); RED BLOOD CELL COUNT(AUTO) 3.79 MIL/uL (4.5-6.0); WHITE BLOOD COUNT (AUTO) 9.2 K/uL (4.3-11.0)
[2022-08-03 06:50] LABS: CALCIUM, SERUM 8.5 mg/dL (8.5-10.1); CARBON DIOXIDE 24 mmol/L (21-32); CHLORIDE 106 mmol/L (98-107); GLUCOSE 82 mg/dL (74-106); MAGNESIUM 2.2 mg/dL (1.8-2.4); PHOSPHORUS 2.8 mg/dL (2.5-4.9); POTASSIUM 3.7 mmol/L (3.5-5.1); SODIUM SERUM 139 mmol/L (136-145); UREA NITROGEN, BLOOD 20 mg/dL (7-18)
[2022-08-03 06:54] LABS: CHOLESTEROL 106 mg/dL (<200); HDL CHOLESTEROL 56 mg/dL (40-60); LDL 48 mg/dL (0-99); TRIGLYCERIDES 35 mg/dL (30-150)
[2022-08-03 07:00] VITALS: BP 109/60
--- NOTE | 2022-08-03 07:30 | NUR ---
MS PANEL MACHINE SETTER OPENING NOTED RECEIVED PATIENT A/A/OX4. O2 IN ROOM AIR NO S/S OF RESPIRATORY DISTRESS NOTED. PATIENT RESTING ON BED, MOVE ALL EXTREMITIES WITH GENERALIZED WEAKNESS NOTED. BUE BRUISES NOTED, IV ACCESS LFA #20G. SL WITHOUT S/S OF INFILTRATION NOTED. PATIENT DENIES PAIN, PATIENT HAS A PACEMAKER . F/C IN PLACE DRAINING CLEAR YELLOW URINE. SAFET;Y MEASURES IN PLACE: CALL LIGHT, TABLE WITHIN REACH. BED LOCK TO THE LOWEST POSITION, SIDE RAILS UP X2.
--- NOTE | 2022-08-03 07:35 | NUR ---
MS RN CLOSING NOTE PT LEFT AWAKE, RESTING IN BED. ON RA, WITH NO RESPIRATORY DISTRESS. F/C DRAINING TO GRAVITY, URINE OUTPUT: 500 ML. SAFETY PRECAUTIONS IN PLACE: BED IN LOW POSITION, SR UP X 2, CALL LIGHT WITHIN REACH. WILL ENDORSE TO AM SHIFT NURSE FOR EMANUEL.
[2022-08-03] MEDS: SACUBITRIL/VALSARTAN 1 EACH TABLET PO SCH ×2 (08:47→18:47)
[2022-08-03] MEDS: GABAPENTIN 100 MG CAPSULE PO SCH ×3 (08:47→17:42)
[2022-08-03] MEDS: PANTOPRAZOLE 40 MG TABLET.DR PO SCH (08:47)
[2022-08-03] MEDS: FOLIC ACID 1 MG TABLET PO SCH (08:49)
[2022-08-03] MEDS: AMLODIPINE BESYLATE 10 MG TABLET PO SCH (08:49)
[2022-08-03] MEDS: CARVEDILOL 12.5 MG TABLET PO SCH ×2 (08:50→18:28)
[2022-08-03] MEDS: CLOPIDOGREL BISULFATE 75 MG TABLET PO SCH (08:50)
[2022-08-03] MEDS: ATORVASTATIN 40 MG TABLET PO SCH (08:50)
[2022-08-03] MEDS: TIMOLOL 0.5% SOLN OPHTH 5 ML BOTTLE RIGHTEYE SCH (08:52)
[2022-08-03] MEDS: ENSURE ENLIVE CHOC 237 ML CAN PO SCH ×2 (12:11→17:58)
[2022-08-03 16:00] VITALS: BP 92/48
[2022-08-03] MEDS: CYCLOBENZAPRINE 10 MG TABLET PO PRN ×2 (17:39→17:44)
--- NOTE | 2022-08-03 18:18 | NUR ---
ORGANIC PREPARATION TECHNICIAN NOTE PATIENT HAVE REDNESS ON LOWER BACK AND BUTTOCKS, PICTURES TAKEN, NOTIFIED MD. ORDERED WOUND CARE CONSULT.
--- NOTE | 2022-08-03 18:50 | NUR ---
MS TRACTOR CRANE OPERATOR CLOSING NOTE PATIENT IS RESTING IN BED, A/A/OX4. O2 IN ROOM AIR 97% O2 SATURATION, NO S/S OF RESPIRATORY DISTRESS NOTED. HOB ELEVATED SEMI REDDY POSITION . PATIENT DENIES PAIN. PATIENT HAS A PACEMAKER. VS WNL. IV ACCESS LFA #20 SL INTACT. SKIN ISSUES, LOWER BACK AND BUTTOCKS REDNESS NOTED, PICTURES TAKEN. PATIENT WAS VERY COOPERATIVE DURING TURNING IN BED. WOUND CARE CONSULT DONE. F/C IN PLACE DRAINING CLEAR YELLOW URINE 900ML TODAY. SAFETY MEASURES IN PLACE: BED LOCKED TO THE LOWER POSITION, SIDE RAILS UP X2, CALL LIGHT AND TABLE WITHIN REACH. WILL ENDORSE TO THE NEXT SHIFT.
[2022-08-03 20:00] VITALS: BP 86/46
--- NOTE | 2022-08-03 20:33 | NUR ---
MSRN DONKEY ENGINE FIRER/FIREMAN NOTIFIED OF LOW BP. PATIENT ASYMPTOMATIC. WILL REPEAT BP IN 2 HRS ORDERED. CLOSELY WATCHED.
[2022-08-03] MEDS: TAMSULOSIN 0.4 MG CAP.SR.24H PO SCH (21:23)
--- NOTE | 2022-08-03 21:35 | NUR ---
MSRN FLOMAX ADMINISTERED. FOUNDING PARTNER ON FLOOR. INFORMED BP STILL LOW AND PATIENT REMAINS ASYMPTOMATIC, CONVERSANT. CONTINUED MONITORING.
[2022-08-03] MEDS: HYDROCODONE/APAP 5/325MG TABLET PO PRN (23:13)
[2022-08-03 23:23] VITALS: BP 88/53
--- NOTE | 2022-08-03 23:23 | NUR ---
MSRN RECHECKED BP 88/53. REMAINS ALERT/ORIENTED, CONVERSANT. ASYMPTOMATIC.
--- NOTE | 2022-08-04 01:00 | NUR ---
MSRN ASLEEP. AWAKENED WHEN CALLED. EASILY GETS IRRITATED , REFUSED TO HAVE HIS BLOOD PRESSURE CHECK.
--- NOTE | 2022-08-04 06:00 | NUR ---
MSRN ASLEEP, GOT UPSET WHEN CHECKED, REFUSED VITAL SIGNS CHECK STATED TOO EARLY. WENT BACK TO SLEEP.
[2022-08-04] MEDS: PANTOPRAZOLE 40 MG TABLET.DR PO SCH (07:56)
[2022-08-04 08:00] VITALS: BP 104/56
[2022-08-04] MEDS: TIMOLOL 0.5% SOLN OPHTH 5 ML BOTTLE RIGHTEYE SCH (08:44)
[2022-08-04] MEDS: ATORVASTATIN 40 MG TABLET PO SCH (08:44)
[2022-08-04] MEDS: GABAPENTIN 100 MG CAPSULE PO SCH ×3 (08:44→16:05)
[2022-08-04] MEDS: FOLIC ACID 1 MG TABLET PO SCH (08:45)
[2022-08-04] MEDS: CLOPIDOGREL BISULFATE 75 MG TABLET PO SCH (08:45)
[2022-08-04] MEDS: FUROSEMIDE 20 MG TABLET PO SCH (08:45)
[2022-08-04] MEDS: CARVEDILOL 12.5 MG TABLET PO SCH ×2 (08:55→15:54)
[2022-08-04] MEDS: ENSURE ENLIVE CHOC 237 ML CAN PO SCH ×3 (08:55→16:05)
[2022-08-04] MEDS: SACUBITRIL/VALSARTAN 1 EACH TABLET PO SCH ×2 (08:55→15:56)
[2022-08-04] MEDS: AMLODIPINE BESYLATE 10 MG TABLET PO SCH (08:55)
[2022-08-04] MEDS: IPRATROPIUM NEB FS 0.5 MG/2.5 ML AMPUL.NEB NEB SCH ×2 (13:51→19:56)
--- NOTE | 2022-08-04 15:52 | NUR ---
PATIENT WALKED WITH NURSING FOR 100 FT WITH WALKER. ARMANDO COOLEY ORDERED TO FARIDA MEDEL.
[2022-08-04 16:00] VITALS: BP 94/50
--- NOTE | 2022-08-04 18:17 | NUR ---
END OF SHIFT SUMMARY PATIENT IS A/O X4. ABLE TO MAKE NEEDS KNOWN. IV ACCESS ON L FA #20. INDEPENDENT WITH REPOSITIONING. FALL PRECAUTIONS MAINTAINED AT ALL TIMES. PATIENT IS TOLERATING DIET WELL. SAFETY MEASURES MAINTAINED. BED IN LOWEST POSITION, BRAKES LOCKED. SIDE RAILS UP X2. CALL LIGHT WITHIN REACH. WILL ENDORSE CONTINUITY OF CARE TO ONCOMING SHIFT.
[2022-08-04 20:00] VITALS: BP 107/62
[2022-08-04] MEDS: TAMSULOSIN 0.4 MG CAP.SR.24H PO SCH (21:10)
[2022-08-04] MEDS: HYDROCODONE/APAP 5/325MG TABLET PO PRN (21:33)
--- NOTE | 2022-08-04 21:56 | NUR ---
RN NOTE PRN NORCO GIVEN TOLERATED WELL. PT NOTED WITH NO URINE OUTPUT SINCE MEDEL CTAH REMOVAL AT 3PM THIS AFTERNOON PT VISIBLY NOTED WITH ABDOMINAL DISTENTION.PT BLADDER SCANNED NOTED WITH GREATER THAN 459ML. BIOINFORMATICS ASSOCIATE LENORA CASE INFORMED NEW ORDER TO START MEDEL CATH RECEIVED NOTED AND CARRIED OUT.
[2022-08-05] MEDS: IPRATROPIUM NEB FS 0.5 MG/2.5 ML AMPUL.NEB NEB SCH ×4 (01:30→19:46)
--- NOTE | 2022-08-05 06:30 | NUR ---
CLOSING NOTES PATIENT IS A/O X4. ABLE TO MAKE NEEDS KNOWN. IV ACCESS ON LFA #20 S/L . INDEPENDENT WITH REPOSITIONING. FALL PRECAUTIONS MAINTAINED AT ALL TIMES. ALL DUE MEDS GIVEN AND TOLERATED WELL. PT WITH MEDEL CATH IN PLACE WITH 700CC OUTPUT DURING SHIFT. SAFETY MEASURES MAINTAINED. BED IN LOWEST POSITION, BRAKES LOCKED. SIDE RAILS UP X2. CALL LIGHT WITHIN REACH. WILL ENDORSE CARE TO ON COMING NURSE.
[2022-08-05 07:00] VITALS: BP 105/51
[2022-08-05 07:21] LABS: BASOPHILS % (AUTO) 0.4 % (0.0-2.0); EOSINOPHILS % (AUTO) 1.9 % (0.0-6.0); HEMATOCRIT 35 % (39-51); HEMOGLOBIN 11.4 g/dL (13.5-17.5); LYMPHOCYTES # (AUTO) 1.2 K/uL (0.8-4.8); LYMPHOCYTES % (AUTO) 11.5 % (20.0-44.0); MEAN CORPUSCULAR HGB CONC 33 g/dl (31.0-36.0); MEAN CORPUSCULAR VOLUME 95 fL (80-96); MONOCYTES # (AUTO) 1.4 K/uL (0.1-1.30); MONOCYTES % (AUTO) 13.5 % (2.0-12.0); NEUTROPHILS # (AUTO) 7.7 K/uL (1.8-8.9); NEUTROPHILS % (AUTO) 72.7 % (43.0-81.0); PLATELET COUNT (AUTO) 162 K/uL (150-450); RED BLOOD CELL COUNT(AUTO) 3.65 MIL/uL (4.5-6.0); WHITE BLOOD COUNT (AUTO) 10.6 K/uL (4.3-11.0)
[2022-08-05] MEDS: PANTOPRAZOLE 40 MG TABLET.DR PO SCH (07:42)
--- NOTE | 2022-08-05 07:45 | NUR ---
MS RN OPENING NOTE RECEIVED PATIENT AWAKE IN BED. A/O X4. ON ROOM AIR AND TOLERATING WELL. MEDEL CATH IN PLACE, ABLE TO MAKE NEEDS KNOWN. IV ACCESS ON L FA #20. INDEPENDENT WITH REPOSITIONING. FALL PRECAUTIONS MAINTAINED AT ALL TIMES. PATIENT IS TOLERATING DIET WELL. SAFETY MEASURES MAINTAINED. BED IN LOWEST POSITION, BRAKES LOCKED. SIDE RAILS UP X2. CALL LIGHT WITHIN REACH. WILL CONTINUE TO MONITOR PATIENT.
[2022-08-05 07:53] LABS: CALCIUM, SERUM 8.6 mg/dL (8.5-10.1); CREATININE 1.2 mg/dL (0.6-1.3); PHOSPHORUS 3.7 mg/dL (2.5-4.9); POTASSIUM 4.4 mmol/L (3.5-5.1)
[2022-08-05] MEDS: ENSURE ENLIVE CHOC 237 ML CAN PO SCH ×3 (08:26→17:07)
[2022-08-05] MEDS: CLOPIDOGREL BISULFATE 75 MG TABLET PO SCH (08:48)
[2022-08-05] MEDS: FOLIC ACID 1 MG TABLET PO SCH (08:49)
[2022-08-05] MEDS: ATORVASTATIN 40 MG TABLET PO SCH (08:50)
[2022-08-05] MEDS: GABAPENTIN 100 MG CAPSULE PO SCH ×3 (08:50→17:06)
[2022-08-05] MEDS: AMLODIPINE BESYLATE 10 MG TABLET PO SCH (08:53)
[2022-08-05] MEDS: CARVEDILOL 12.5 MG TABLET PO SCH ×2 (08:54→17:07)
[2022-08-05] MEDS: TIMOLOL 0.5% SOLN OPHTH 5 ML BOTTLE RIGHTEYE SCH (08:55)
[2022-08-05] MEDS: SACUBITRIL/VALSARTAN 1 EACH TABLET PO SCH ×2 (08:57→17:08)
[2022-08-05] MEDS: HYDROCODONE/APAP 5/325MG TABLET PO PRN ×2 (13:55→21:12)
--- NOTE | 2022-08-05 13:58 | NUR ---
RN NOTES PATIENT COMPLAINED OF NECK PAIN AND RATE IT 7 OUT OF 10. PATIENT ASKED FOR PAIN MEDICATION. NORCO5-325MG GIVEN.
[2022-08-05 16:00] VITALS: BP 109/54
--- NOTE | 2022-08-05 18:39 | NUR ---
MS RN CLOSING NOTE PATIENT AWAKE IN BED WATCHING TV. A/O X4. ON ROOM AIR AND TOLERATING WELL. MEDEL CATH IN PLACE, ABLE TO MAKE NEEDS KNOWN. IV ACCESS ON L FA #20 SL. INDEPENDENT WITH REPOSITIONING. FALL PRECAUTIONS MAINTAINED AT ALL TIMES. PATIENT IS TOLERATING DIET WELL. SAFETY MEASURES MAINTAINED. BED IN LOWEST POSITION, BRAKES LOCKED. SIDE RAILS UP X2. CALL LIGHT WITHIN REACH. WILL ENDORSE TO THE ENGRAVING SUPERVISOR NURSE FOR EMANUEL.
--- NOTE | 2022-08-05 19:15 | NUR ---
RN opening notes Received Pt from morning nurse. Pt is laying in bed comfortably watching TV. Pt is alert and orientedX3. On room air. No SOB. No S/S of distress noted. IV site at LFA# 20 is clean, intact, flushes easily and SL. Small cath is inplaced and draining yellow urine. Safety precautions is maintained. Bed at low position, brakes locked, side rails upX3, bed alarm, hob elevated and call light is within reach. will continue to monitor.
--- NOTE | 2022-08-05 19:40 | NUR ---
RN notes Pt is getting breathing tx with Jaleel HENDRICKS at the bedside.
[2022-08-05 20:00] VITALS: BP 98/56
[2022-08-05] MEDS: TAMSULOSIN 0.4 MG CAP.SR.24H PO SCH (21:05)
[2022-08-06] MEDS: IPRATROPIUM NEB FS 0.5 MG/2.5 ML AMPUL.NEB NEB SCH ×3 (01:30→13:01)
--- NOTE | 2022-08-06 06:37 | NUR ---
RN closing notes Pt is resting in bed comfortably. Pt is alert and orientedX3 and forgetful. On room air. No SOB. No S/S of distress noted. VS is stable. IV site at LFA# 20 is clean, intact, flushes easily and SL. Small cath is inplaced and draining yellow urine 1200ml. Routine meds were given as ordered. Kept Pt clean, dry and comfortable. Safety precautions is maintained. Bed at low position, brakes locked, side rails upX3, bed alarm, hob elevated and call light is within reach. Will endorse to am nurse for EMANUEL.
[2022-08-06] MEDS: PANTOPRAZOLE 40 MG TABLET.DR PO SCH (07:39)
--- NOTE | 2022-08-06 07:45 | NUR ---
MS RN OPENING NOTE RECEIVED PATIENT AWAKE IN BED WATCHING TV. A/O X4. ON ROOM AIR AND TOLERATING WELL. MEDEL CATH IN PLACE, ABLE TO MAKE NEEDS KNOWN. IV ACCESS ON L FA #20 SL. INDEPENDENT WITH REPOSITIONING. FALL PRECAUTIONS MAINTAINED AT ALL TIMES. PATIENT IS TOLERATING DIET WELL. SAFETY MEASURES MAINTAINED. BED IN LOWEST POSITION, BRAKES LOCKED. SIDE RAILS UP X2. CALL LIGHT WITHIN REACH. WILL CONTINUE TO MONITOR PATIENT.
[2022-08-06 08:00] VITALS: BP 103/53
[2022-08-06] MEDS: SACUBITRIL/VALSARTAN 1 EACH TABLET PO SCH (08:27)
[2022-08-06] MEDS: TIMOLOL 0.5% SOLN OPHTH 5 ML BOTTLE RIGHTEYE SCH (08:27)
[2022-08-06] MEDS: ENSURE ENLIVE CHOC 237 ML CAN PO SCH ×2 (08:27→12:09)
[2022-08-06] MEDS: ATORVASTATIN 40 MG TABLET PO SCH (08:27)
[2022-08-06] MEDS: CARVEDILOL 12.5 MG TABLET PO SCH (08:28)
[2022-08-06] MEDS: AMLODIPINE BESYLATE 10 MG TABLET PO SCH (08:28)
[2022-08-06] MEDS: GABAPENTIN 100 MG CAPSULE PO SCH ×2 (08:29→13:46)
[2022-08-06] MEDS: CLOPIDOGREL BISULFATE 75 MG TABLET PO SCH (08:29)
[2022-08-06] MEDS: FOLIC ACID 1 MG TABLET PO SCH (08:29)
[2022-08-06] MEDS: FUROSEMIDE 20 MG TABLET PO SCH (08:29)
--- NOTE | 2022-08-06 10:34 | NUR ---
WOUND CARE CONSULT: LIMITED ASSESSMENT TODAY PT ADAMANTLY REFUSED TO HAVE SOCKS REMOVED. PT PRESENTS WITH DRY ABRASION WITH SCAB TO MIDBACK AND SCARRING TO LOWER SACRAL AREA, PRESENT ON ADMISSION. PT IS EXTREMELY THIN AND BONY. MEDEL CATH NOTED. RECOMMENDATIONS MADE FOR SKIN PROTECTION. DISCUSSED WITH NURSING STAFF. MD IN AGREEMENT WITH PLAN OF CARE.
[2022-08-06] MEDS ORDERED: Z GUARD REMEDY 4 OZ OINT TP PRN (11:00)
[2022-08-06] MEDS ORDERED: TAMS-12 PO (12:53)
[2022-08-06] MEDS ORDERED: CYCL10TA9 PO (12:53)
[2022-08-06] MEDS ORDERED: METH4TAB17 PO (13:27)
[2022-08-06 16:00] VITALS: BP 90/47
--- NOTE | 2022-08-06 16:00 | NUR ---
RN NOTES INFORMED DR. CABRALES IF SHE WANTS ME TO REMOVE THE MEDEL CATHETER BEFORE DISCHARGE, SHE SAID TO KEEP IT DUE TO URINARY RETENTION.
--- NOTE | 2022-08-06 16:56 | NUR ---
TOPOLOGY TEACHER NOTES PT DISCHARGED TO [facility] IN STABLE CONDITION. A/O X4. V/S TAKEN, STABLE AND RECORDED. PT BELONGINGS CHECKED AND RECORDED. PHOTO TAKEN AND RECORDED. LFA G#20 REMOVED, CALLED AND REPORT GIVEN TO JOYCE REGISTERED NURSE EARLIER. MEDEL CATHETER INTACT AND DRAINING WELL @900ML. INFORMED DR. CABRALES ABOUT THE MEDEL CATHETER AND SHE SAID TO KEEP IT DUE TO URINARY RETENTION. ARM BAND REMOVED, [facility]. MD AND CHARGE NURSE AWARE OF DISCHARGE.
== END 2022-08-06 16:50 | DRG 551 ==
LOC: ER 13:52 → TELE 19:59 → MED 21:10
PROVIDERS: ADMIT Nurse Practitioner Acute Care; ATTEND Nurse Practitioner Acute Care
DX: M54.16 Radiculopathy, lumbar region (principal); E43 Unspecified severe protein-calorie malnutrition; D68.59 Other primary thrombophilia; I48.21 Permanent atrial fibrillation; R64 Cachexia; Z68.1 Body mass index [BMI] 19.9 or less, adult; I50.30 Unspecified diastolic (congestive) heart failure; I27.20 Pulmonary hypertension, unspecified; I25.10 Atherosclerotic heart disease of native coronary artery without angina pectoris; R33.9 Retention of urine, unspecified; J44.9 Chronic obstructive pulmonary disease, unspecified; Z20.822 Contact with and (suspected) exposure to COVID-19; I11.0 Hypertensive heart disease with heart failure; Z95.2 Presence of prosthetic heart valve; Z95.0 Presence of cardiac pacemaker; Z88.0 Allergy status to penicillin; Z88.2 Allergy status to sulfonamides; Z79.899 Other long term (current) drug therapy; Z79.02 Long term (current) use of antithrombotics/antiplatelets; Z87.891 Personal history of nicotine dependence; H40.9 Unspecified glaucoma; Z79.01 Long term (current) use of anticoagulants; E78.5 Hyperlipidemia, unspecified; G62.9 Polyneuropathy, unspecified; I35.1 Nonrheumatic aortic (valve) insufficiency; R94.6 Abnormal results of thyroid function studies; Z74.09 Other reduced mobility; Z98.890 Other specified postprocedural states
CPT/HCPCS: 36415; 71045-TC; 80048-TC; 80061-TC; 80076-TC; 82550-TC; 83735-TC; 83880; 84100-TC; 84439-TC; 84443-TC; 84484-TC; 85025-TC; 85730-TC; 87081-TC; 94799-TC; 97112-TC; 97116-TC; 97530-TC; C9803; G0378

== ENCOUNTER 2025-03-01 10:52 | Inpatient (IN) | payer MEDICARE, OTHER ==
[~2025-03-01] VITALS: Ht 162.6 cm; Wt 44.5 kg
[~2025-03-01 10:52] MED LIST changes: -ALBUT2 NEB; +AMLO10TA4 PO; -APIX5TAB PO; -ASCO-340 PO; -BUDE10.2 INH; +CYCL10TA9 PO; -DOCU-141 PO; -FERR-68 PO; -GUAI600T53 PO; -IPRA0.2S9 NEB; -IPRA3AMP23 NEB; -LEVO500T90 PO; -LORA-258 PO; -MAGN400T26 PO; -POTA20TA83 PO; +TAMS-12 PO
[2025-03-01] MEDS ORDERED: MORPHINE SULFATE INJ 2 MG/ML DISP.SYRIN ONE (11:36)
[2025-03-01] MEDS: MORPHINE SULFATE INJ 2 MG/ML DISP.SYRIN IV ONE (11:40)
[2025-03-01 11:50] LABS: PLATELET COUNT (AUTO) 215 K/uL (150-450); RED BLOOD CELL COUNT(AUTO) 3.71 MIL/uL (4.5-6.0); RED CELL DISTRIBUTION WIDTH 16.1 % (11.5-15.0); WHITE BLOOD COUNT (AUTO) 11.9 K/uL (4.3-11.0)
[2025-03-01 12:02] LABS: CALCIUM, SERUM 8.9 mg/dL (8.5-10.1); CREATININE 1.0 mg/dL (0.6-1.3); SODIUM SERUM 138 mmol/L (136-145); UREA NITROGEN, BLOOD 20 mg/dL (7-18)
[2025-03-01 12:08] LABS: ASPARTATE AMINOTRANSFERASE 17 U/L (15-37); TOTAL PROTEIN, SERUM 7.3 g/dL (6.4-8.2)
[2025-03-01] MEDS ORDERED: AZITHROMYCIN 250 MG TABLET ONE (14:04)
[2025-03-01] MEDS ORDERED: CEFTRIAXONE 1GM BAG (ER ONLY) 50 ML IV ONE (14:04)
[2025-03-01] MEDS: AZITHROMYCIN 250 MG TABLET PO ONE (14:15)
[2025-03-01] MEDS ORDERED: IOHEXOL-300 100 ML VIAL IV ONE (14:15)
[2025-03-01] MEDS ORDERED: IV NS 0.9% 250 ML IV ONE (14:15)
[2025-03-01] MEDS: CEFTRIAXONE 1 G in IV D5W 50 ML IV ONE (14:40)
[2025-03-01] MEDS ORDERED: Z GUARD REMEDY 4 OZ OINT TP PRN (15:00)
[2025-03-01] MEDS ORDERED: ACETAMINOPHEN 325 MG TABLET PO PRN (15:00)
[2025-03-01] MEDS ORDERED: MAGNESIUM HYDROXIDE 30 ML UDC PO PRN (15:00)
[2025-03-01] MEDS ORDERED: MAG HYDROX/AL HYDROX/SIMETH 30 ML UDC PO PRN (15:00)
[2025-03-01] MEDS ORDERED: ZOLPIDEM TARTRATE 5 MG TABLET PO PRN (15:00)
[2025-03-01] MEDS ORDERED: ONDANSETRON HCL/PF 4 MG/2 ML VIAL IVP PRN (15:00)
[2025-03-01] MEDS ORDERED: CYCLOBENZAPRINE 10 MG TABLET PO PRN (16:00)
[2025-03-01] MEDS ORDERED: methylPREDNISolone (4MG) 4 MG TABLET PO SCH (16:00)
[2025-03-01] MEDS: ENOXAPARIN SODIUM 30 MG/0.3 ML DISP.SYRIN SQ SCH (17:57)
[2025-03-01] MEDS: CARVEDILOL 12.5 MG TABLET PO SCH (17:58)
[2025-03-01 18:22] VITALS: BP 153/79; TEMP 98.1; O2SAT 95
[2025-03-01] MEDS: IV 1/2NS 1000 ML 1,000 ML IV PRN (20:46)
[2025-03-02 00:17] VITALS: BP 111/56; TEMP 97.2
[2025-03-02 04:31] VITALS: BP 118/86; TEMP 97.9; O2SAT 100
[2025-03-02] MEDS: PANTOPRAZOLE 40 MG TABLET.DR PO SCH (06:35)
[2025-03-02 07:05] LABS: PLATELET COUNT (AUTO) 215 K/uL (150-450); RED BLOOD CELL COUNT(AUTO) 3.52 MIL/uL (4.5-6.0); RED CELL DISTRIBUTION WIDTH 15.4 % (11.5-15.0); WHITE BLOOD COUNT (AUTO) 10.6 K/uL (4.3-11.0)
[2025-03-02 07:07] LABS: CALCIUM, SERUM 8.5 mg/dL (8.5-10.1); CREATININE 0.9 mg/dL (0.6-1.3); PHOSPHORUS 2.8 mg/dL (2.5-4.9); SODIUM SERUM 139.0 mmol/L (136-145); UREA NITROGEN, BLOOD 18.0 mg/dL (7-18)
[2025-03-02] MEDS: ATORVASTATIN 40 MG TABLET PO SCH (08:16)
[2025-03-02] MEDS: FOLIC ACID 1 MG TABLET PO SCH (08:16)
[2025-03-02] MEDS: AMLODIPINE BESYLATE 10 MG TABLET PO SCH (08:17)
[2025-03-02] MEDS: TAMSULOSIN 0.4 MG CAP.SR.24H PO SCH (08:17)
[2025-03-02] MEDS: TIMOLOL 0.5% SOLN OPHTH 5 ML BOTTLE RIGHTEYE SCH (08:25)
[2025-03-02 11:24] LABS: LDL 38.0 mg/dL (0-99)
[2025-03-02] MEDS: CEFTRIAXONE 1 G in IV D5W 50 ML IV SCH (13:00)
[2025-03-02 14:15] LABS: IRON, SERUM 13.0 ug/dl (50-175)
[2025-03-02] MEDS: AZITHROMYCIN 500 MG in IV D5W 250 ML IV SCH (14:25)
[2025-03-02 20:00] VITALS: BP 110/58; TEMP 97.7; O2SAT 94
[2025-03-03] VITALS: BP 104/55; TEMP 97.8; O2SAT 95
[2025-03-03 04:00] VITALS: BP 119/64; TEMP 97.7; O2SAT 96
[2025-03-03 08:00] VITALS: BP 123/67; TEMP 97.2; O2SAT 98
[2025-03-03 09:00] VITALS: BP 123/67; TEMP 97.2; O2SAT 98
[2025-03-03] MEDS ORDERED: PRED20TA PO (10:26)
[2025-03-03] MEDS ORDERED: AZIT500T4 PO (10:26)
[2025-03-05 06:07] LABS: *SPE A/G RATIO 0.9 (0.7-1.7); *SPE ALBUMIN 3.0 g/dL (2.9-4.4); *SPE ALPHA-1-GLOBULIN 0.5 g/dL (0.0-0.4); *SPE ALPHA-2-GLOBULIN 1.0 g/dL (0.4-1.0); *SPE BETA GLOBULIN 0.9 g/dL (0.7-1.3); *SPE GLOBULIN, TOTAL 3.2 g/dL (2.2-3.9); *SPE M-SPIKE Not Observed g/dL (Not Observed); *SPE PROTEIN TOTAL 6.2 g/dL (6.0-8.5); *SPEGAMMA GLOBULIN 0.9 g/dL (0.4-1.8)
== END 2025-03-03 12:47 | disposition home health service (06) | DRG 193 ==
LOC: ER 10:54 → TELE1 14:51 → MEDSG1 03-03 09:43
PROVIDERS: ADMIT Student in an Organized Health Care Education/Training Program; ATTEND Internal Medicine
DX: J15.9 Unspecified bacterial pneumonia (principal); E43 Unspecified severe protein-calorie malnutrition; R64 Cachexia; I27.20 Pulmonary hypertension, unspecified; D68.59 Other primary thrombophilia; I50.9 Heart failure, unspecified; E86.0 Dehydration; J44.0 Chronic obstructive pulmonary disease with (acute) lower respiratory infection; I11.0 Hypertensive heart disease with heart failure; Z95.2 Presence of prosthetic heart valve; I73.9 Peripheral vascular disease, unspecified; J44.1 Chronic obstructive pulmonary disease with (acute) exacerbation; J98.11 Atelectasis; I25.10 Atherosclerotic heart disease of native coronary artery without angina pectoris; R91.8 Other nonspecific abnormal finding of lung field; Z95.0 Presence of cardiac pacemaker; Z88.0 Allergy status to penicillin; Z88.2 Allergy status to sulfonamides; Z87.891 Personal history of nicotine dependence; Z79.899 Other long term (current) drug therapy; Z79.02 Long term (current) use of antithrombotics/antiplatelets; J43.9 Emphysema, unspecified; I48.91 Unspecified atrial fibrillation; H40.9 Unspecified glaucoma; G62.9 Polyneuropathy, unspecified; E78.5 Hyperlipidemia, unspecified; Z86.79 Personal history of other diseases of the circulatory system; Z98.890 Other specified postprocedural states; Z74.09 Other reduced mobility; E86.9 Volume depletion, unspecified; R79.89 Other specified abnormal findings of blood chemistry; I35.1 Nonrheumatic aortic (valve) insufficiency
CPT/HCPCS: 36415; 71045-TC; 71260-TC; 80048-TC; 80061-TC; 80076-TC; 82728-TC; 83540-TC; 83605-TC; 83690-TC; 83735-TC; 83880; 84100-TC; 84155; 84165; 84439-TC; 84443-TC; 84484-TC; 85025-TC; 87040-TC; 93307-TC; G0378; J0456; J0696; J1650; J2270; J7050; J7060; Q9967